=== PATIENT | female | born 1960 | race Caucasian/White ===

== ENCOUNTER 2018-10-17 16:04 | Emergency (ER) | payer MEDICAID ==
--- NOTE | 2018-10-17 16:55 | EDPHY ---
H & P Stated Complaint: cough, congestion Time Seen by Provider: 10/17/18 16:25 HPI/ROS: Chief complaint: Cough persists, wheezing improved. HPI: 58-year-old female who is been ill for 2 weeks. She does have a history of asthma and is on chronic Advair therapy as well as p.r.n. Proventil and therapy. Evidently when she seen 2 weeks ago she was placed on a 5 day course of prednisone. She is has really did help her cough or her breathing but sugar did make her chronic left shoulder pain feel better. However at the beginning some 14 days ago they have been having a cough that was essentially dry but no fevers or chills. In the past 5 days the cough has been productive of some tannish material, sometimes mucoid but with some green material. She is not sure if that is coming from her nose or via postnasal drip for months. Or nearly she sleeps propped up in the 1st place. She has not tried try laying down as a breathing so tried by this. She but some DayQuil and NyQuil yesterday and tried it but it has really helped all that much. Of note, she is on Seroquel. There has been no fevers or chills. No headache or diarrhea or nausea or vomiting. She really did not mention the rash that is on her right iliac crest posteriorly however did note that is been there for about 3 days when I asked her as I was examining her. It is really itchy essentially not painful per se. It did not surprise her when I mentioned it looks like shingles as she says it happened before. ROS: Constitutional - no fevers or chills. Eyes - no discharge, or injection ENT - no earache, nor difficulty swallowing, or sore throat. Respiratory - No Shortness of breath, no wheezing nor pleuritic chest pain. While she has had no wheezing does feel tightness in the chest when she breathes Musculoskeletal - no joint or muscle pain. Integument - no rashes. Neurological - no headache, numbness, tingling, or paresthesias. No focal motor weakness. Immunological - no swelling or lymphadenopathy A 10 system review of systems was performed and is negative except for the noted findings in the HPI. Source: Patient Exam Limitations: No limitations - Medical/Surgical History Hx Asthma: Yes Hx Chronic Respiratory Disease: No Hx Diabetes: No Hx Cardiac Disease: No Hx Renal Disease: No Hx Cirrhosis: No Hx Alcoholism: No Hx HIV/AIDS: No Hx Splenectomy or Spleen Trauma: No Other PMH: Depression. Grief reaction. PTSD. Chronic left shoulder pain. - Family History Significant Family History: No pertinent family hx - Social History Smoking Status: Never smoked Alcohol Use: None Drug Use: None - Physical Exam Exam: Gen: Well developed, well nourished. Nontoxic. afebrile VSS normal phonation HEENT: Normocephalic. Ears: TMs are clear. Hearing normal. There is bubbling present in the left ear drum which is clear and translucent without erythema. The right eardrum is normal Eyes: PERRL. No conjunctival injection or pallor. no jaundice. Nose: No nasal discharge. Sinuses are nontender. Throat: Membranes are moist. Oropharynx is without erythema or exudate. Normal phonation. Neck: Trachea is in the ML. No laryngeal tenderness. No adenopathy Lungs: Good air entry into both lungs. No rales rhonchi or wheezes. No air hunger. No respiratory distress. Skin: Good color, without pallor. There is no diaphoresis. Skin is warm and dry , without diaphoresis. Intact without rashes Constitutional: Initial Vital Signs Temperature (C) 36.5 C 10/17/18 16:14 Heart Rate 90 10/17/18 16:14 O2 Sat (%) 99 10/17/18 16:14 O2 Delivery Mode Room Air Allergies/Adverse Reactions: codeine Allergy (Verified 10/17/18 17:08) Home Medications: Medication Instructions Recorded Acyclovir 800 mg PO 5XD #35 tab 10/17/18 Benzonatate 200 mg PO TID PRN #28 capsule 10/17/18 Meloxicam 10/17/18 Seroquel 10/17/18 Sulfamethox/Tmp 800/160 mg 1 tab PO BID #14 tab 10/17/18 [Bactrim Ds] Tizanidine HCl 10/17/18 Trazodone HCl 10/17/18 Medical Decision Making ED Course/Re-evaluation: She has a stigmata to suggest a lower tract infections such as pneumonitis. As she has had a chest x-ray just 2 weeks ago at the very onset of this illness and is nontoxic I would not recommend another chest x-ray. There is some sinus tenderness on the right maxillary so possibilities sinusitis as well. She has been taking her ProAir twice a day. I will have her increased to 4 times a day for 2 weeks. She is to continue her Advair. She has lesions on the right back compatible with shingles. However acyclovir interact with the 10 as it in which she has not taken for 2 days. That she will avoid that for the next 7 days, as she will be on the acyclovir for 5 days Differential Diagnosis: Diagnostic considerations include, but are not limited to, the following: URI, sinusitis, pharyngitis, otitis media, pneumonia, allergy, influenza, strep throat. Diagnostic considerations include, but are not limited to, the following: Shingles, contact dermatitis, folliculitis, urticaria, abrasion. Departure - Departure Disposition: Home, Routine, Self-Care Clinical Impression: Acute bacterial sinusitis Shingles Qualifiers: Herpes zoster complications: without complications Qualified Code(s): B02.9 - Zoster without complications Instructions: Shingles (ED), Sinusitis (ED) Additional Instructions: Take benzonatate for the cough Do not take [id number] products as your on Seroquel Bactrim as the antibiotic for both bronchitis and her sinusitis For the next 2 weeks take her ProAir 2 puffs 4 times a day so as to heal the coughing. Acyclovir 4 the shingles While on the acyclovir you're NOT to take the Tinazidine. Do not take this medication for 7 days minimum Referrals: [facility] [Other] - As per Instructions Prescriptions: Acyclovir 800 mg PO 5XD #35 tab Benzonatate 200 mg PO TID PRN #28 capsule PRN Reason: Cough Sulfamethox/Tmp 800/160 mg [Bactrim Ds] 1 tab PO BID #14 tab
[2018-10-17 17:33] VITALS: BP 138/69
== END 2018-10-17 17:35 | disposition home or self-care (01) ==
LOC: CED 16:04
DX: J01.90 Acute sinusitis, unspecified (principal); B02.9 Zoster without complications; J45.909 Unspecified asthma, uncomplicated; Z79.899 Other long term (current) drug therapy
CPT/HCPCS: 99284-ER